=== PATIENT | female | born 1995 | race Caucasian/White ===

== ENCOUNTER 2019-10-03 05:46 | Outpatient (CLI) | payer OTHER ==
[~2019-10-03] VITALS: Ht 172 cm; Wt 61.3 kg
== END 2019-10-03 14:13 | disposition home or self-care (01) ==
LOC: PREOP 05:46
PROVIDERS: ATTEND Surgery
DX: Z01.818 Encounter for other preprocedural examination (principal)

== ENCOUNTER → 2019-11-09 | Outpatient (CLI) | payer MEDICAID | END | disposition home or self-care (01) | LOC: PREOP 05:35 | PROVIDERS: ATTEND Surgery | DX: Z01.818 Encounter for other preprocedural examination (principal) ==

== ENCOUNTER 2021-05-30 18:16 | Emergency (ER) | payer MEDICAID | END 2021-05-30 18:25 | disposition left against medical advice (07) | LOC: EDUNIT# 18:16 → ER 18:18 | DX: K46.9 Unspecified abdominal hernia without obstruction or gangrene (principal) ==

== ENCOUNTER 2021-05-30 19:01 | Emergency (ER) | payer MEDICAID ==
--- NOTE | 2021-05-30 19:16 | ED GU-Female ---
General Stated Complaint: HERNIA Source: patient History of Present Illness Date Seen by Provider: May 30, 2021 Time Seen by Provider: 19:10 Initial Comments PT ARRIVES VIA POV FROM HOME WITH MALE S.O. C/O LOWER ABDOMINAL PAIN X 3 DAYS, WORSE TODAY PT IS 36 WEEKS PT STATES SHE WAS AT [facility] 1 WEEK AGO AND DX WITH UMBILICAL HERNIA AND TOLD TO FOLLOW UP WITH HER OB DR. HAS NOT SEEN ANYONE UNTIL TODAY PT STATES HER PAIN IS ALL DOWN LOW--ALL ACROSS LOWER ABDOMEN AND PELVIC AREA PT SENT DIRECTLY TO OB DEPT PCP: DR. CARABALLO Allergies and Home Medications Allergies Coded Allergies: No Known Drug Allergies (Unverified , 10/03/19) Patient Home Medication List Home Medication List Reviewed: No No Active Prescriptions or Reported Meds Review of Systems Review of Systems Constitutional: no symptoms reported Gastrointestinal: see HPI Genitourinary: see HPI : Yes Past Gugukmw-Bwddrw-Akkjrp Hx Seasonal Allergies Seasonal Allergies: Yes Past Medical History Surgeries: No Respiratory: No Cardiac: No Neurological: Yes (HX FEBRILE SEIZURE) Seizure Disorder Sexually Transmitted Disease: No HIV/AIDS: No Genitourinary: No Gastrointestinal: Yes Chronic Constipation, Chronic Diarrhea Musculoskeletal: Yes Chronic Back Pain Endocrine: No HEENT: Yes (GLASSES) Loss of Vision: Denies Hearing Impairment: Denies Cancer: No Psychosocial: Yes Anxiety Integumentary: No Blood Disorders: No Adverse Reaction/Blood Tranf: No (N/A) Physical Exam Vital Signs Capillary Refill : Height, Weight, BMI Height: '" Weight: lbs. oz. kg; 20.72 BMI Method: General Appearance: WD/WN Respiratory: normal breath sounds Gastrointestinal: other (GRAVID UTERUS--NEAR-TERM. NO UMBILICAL HERNIA NOTED AT THIS TIME, AND UMBILICAL AREA IS NON-TENDER AND NON-INFLAMED. HAS MILD DIFFUSE LOWER ABDOMINAL/SUPRAPUBIC TENDERNESS) Extremities: no pedal edema Neurologic/Psychiatric: no motor/sensory deficits, alert, normal mood/affect Skin: normal color, warm/dry Progress/Results/Core Measures Suspected Sepsis SIRS Temperature: Pulse: Respiratory Rate: Blood Pressure / Mean: Results/Orders Vital Signs/I&O Capillary Refill : Departure Impression Primary Impression: 36 weeks gestation of Additional Impression: Pelvic pain affecting in third trimester, antepartum Disposition: 30 STILL A PATIENT (TAKEN TO OB DEPT) Condition: Stable Departure-Patient Inst. Referrals: NELL CARABALLO MD (PCP/Family) Primary Care Physician Scripts No Active Prescriptions or Reported Meds STANLEY BARBOUR DO May 30, 2021 19:15
== END 2021-05-30 19:36 | disposition still patient (30) ==
LOC: EDUNIT# 19:01 → ER 19:03
DX: O26.893 Other specified pregnancy related conditions, third trimester (principal); R10.2 Pelvic and perineal pain; Z3A.36 36 weeks gestation of pregnancy

== ENCOUNTER 2021-05-30 19:54 | Outpatient (CLI) | payer MEDICAID ==
[~2021-05-30] VITALS: Ht 172.7 cm; Wt 92.9 kg
[2021-05-30 20:00] VITALS: BP 107/58
--- NOTE | 2021-06-03 11:54 | Physician Query-Final Dx ---
Clinic Account Progress/Dx Physician Query: Please give diagnosis Please include # weeks gestation Date of Service May 30, 2021 at 19:54 PREETI FOURNIER Jun 03, 2021 11:54
== END 2021-05-30 20:35 | disposition home or self-care (01) ==
LOC: LDRP 19:54 → WSo 19:54
PROVIDERS: ATTEND Family Medicine
DX: O99.619 Diseases of the digestive system complicating pregnancy, unspecified trimester (principal); Z3A.00 Weeks of gestation of pregnancy not specified
CPT/HCPCS: 99212

== ENCOUNTER 2021-06-25 05:56 | Inpatient (IN) | payer MEDICAID ==
[2021-06-25] VITALS (49 sets, daily range): BP systolic 92–159; BP diastolic 50–87
[2021-06-25] MEDS ORDERED: MINERAL OIL CONCENTRATE 99.9% 15 ML UDC TOP PRN (06:15)
[2021-06-25] MEDS ORDERED: LIDOCAINE/EPI 2% 1:200,00 (XYLOCAINE) 20 ML VIAL INJ PRN (06:15)
[2021-06-25 06:50] LABS: BASOPHILS # (AUTO) 0.1 10^3/uL (0.0-0.1); BASOPHILS % (AUTO) 0 % (0-10); EOSINOPHILS # (AUTO) 0.2 10^3/uL (0.0-0.3); EOSINOPHILS % (AUTO) 2 % (0-10); HEMATOCRIT 35 % (35-52); HEMOGLOBIN 12.1 g/dL (11.5-16.0); LYMPHOCYTES # (AUTO) 2.6 10^3/uL (1.0-4.0); LYMPHOCYTES % (AUTO) 19 % (12-44); MEAN CORPUSCULAR HEMOGLOBIN 32 pg (25-34); MEAN CORPUSCULAR HGB CONC 35 g/dL (32-36); MEAN CORPUSCULAR VOLUME 94 fL (80-99); MEAN PLATELET VOLUME 11.4 fL (9.0-12.2); MONOCYTES # (AUTO) 0.8 10^3/uL (0.0-1.0); MONOCYTES % (AUTO) 6 % (0-12); NEUTROPHILS # (AUTO) 9.9 10^3/uL (1.8-7.8); NEUTROPHILS % (AUTO) 73 % (42-75); PLATELET COUNT 289 10^3/uL (130-400); WHITE BLOOD COUNT 13.6 10^3/uL (4.3-11.0)
[2021-06-25] MEDS: D5 LR IV SOLUTION 1,000 ML IV SCH ×2 (07:24→14:47)
[2021-06-25 08:04] LABS: BILIRUBIN,URINE NEGATIVE (NEGATIVE); CLARITY,URINE CLEAR; COLOR,URINE YELLOW; GLUCOSE, URINE (UA) NEGATIVE (NEGATIVE); KETONES,URINE NEGATIVE (NEGATIVE); LEUKOCYTE ESTERASE ,URINE TRACE (NEGATIVE); NITRITE,URINE NEGATIVE (NEGATIVE); PH,URINE 6.5 (5-9); PROTEIN,URINE NEGATIVE (NEGATIVE)
[2021-06-25 08:20] LABS: BACTERIA,URINE TRACE /HPF; WBC,URINE RARE /HPF
[2021-06-25] MEDS ORDERED: PANTOPRAZOLE 40 MG (PROTONIX) VIAL IV ONE (09:00)
[2021-06-25] MEDS: OXYTOCIN PRE-MIX DRIP 500 ML IV SCH ×2 (09:34→20:12)
[2021-06-25] MEDS ORDERED: CATHETER FLUSH 10 ML SYR IV SCH ×2 (14:00→22:00)
--- NOTE | 2021-06-25 14:28 | Labor Progress Note ---
Labor Progress Note Labor Progress Note Date Seen by Provider: Jun 25, 2021 Time Seen by Provider: 13:45 Subjective: Pt denies complaints. Objective: Cervical exam: 3.5/50/-3 Consistency: soft Position: anterior Presentation: vertex heart tones: moderate variability, reactive Tocometer: 3-4 ctx/10 minutes Assessment/Plan: Eve Sky is a (25 /Para / ,Gestational Age (wks)39 here for IOL. AROM done at time of exam with placement of FSE. Clear fluid return. TOCO/FSE Continue pitocin/ Anesthesia: none, planning epidural Anticipate vaginal delivery. Vitals - Labs Vital Signs - I&O Vital Signs Date Time Temp Pulse Resp B/P (MAP) Pulse Ox O2 Delivery O2 Flow Rate FiO2 06/25/21 14:15 63 18 121/64 (83) 06/25/21 14:00 62 18 118/64 (82) 06/25/21 13:30 71 18 92/50 (64) 06/25/21 13:15 63 18 117/64 (81) 06/25/21 13:00 60 18 117/59 (78) 06/25/21 12:45 62 18 115/69 (84) 06/25/21 12:30 55 18 100/56 (71) 06/25/21 12:00 63 18 103/50 (67) 06/25/21 11:45 66 18 117/58 (77) 06/25/21 11:30 66 18 131/87 (102) 06/25/21 10:45 66 18 118/69 (85) 06/25/21 10:30 66 18 118/71 (87) 06/25/21 09:45 74 18 122/75 (91) 06/25/21 09:15 77 18 116/79 (91) 06/25/21 08:45 78 18 116/70 (85) 06/25/21 08:15 74 18 127/58 (81) 06/25/21 07:18 36.7 90 17 98 Room Air 06/25/21 07:17 36.7 93 18 124/72 (89) 98 Labs Laboratory Tests 06/25/21 06:30: White Blood Count 13.6H, Red Blood Count 3.74L, Hemoglobin 12.1, Hematocrit 35, Mean Corpuscular Volume 94, Mean Corpuscular Hemoglobin 32, Mean Corpuscular Hemoglobin Concent 35, Red Cell Distribution Width 13.0, Platelet Count 289, Mean Platelet Volume 11.4, Immature Granulocyte % (Auto) 1, Neutrophils (%) (Auto) 73, Lymphocytes (%) (Auto) 19, Monocytes (%) (Auto) 6, Eosinophils (%) (Auto) 2, Basophils (%) (Auto) 0, Neutrophils # (Auto) 9.9H, Lymphocytes # (Auto) 2.6, Monocytes # (Auto) 0.8, Eosinophils # (Auto) 0.2, Basophils # (Auto) 0.1, Immature Granulocyte # (Auto) 0.1 06/25/21 07:53: Urine Color YELLOW, Urine Clarity CLEAR, Urine pH 6.5, Urine Specific [place] 1.020, Urine Protein NEGATIVE, Urine Glucose (UA) NEGATIVE, Urine Ketones NEGATIVE, Urine Nitrite NEGATIVE, Urine Bilirubin NEGATIVE, Urine Urobilinogen 0.2, Urine Leukocyte Esterase TRACEH, Urine RBC (Auto) NEGATIVE, Urine RBC NONE, Urine WBC RARE, Urine Squamous Epithelial Cells 5-10, Urine Crystals NONE, Urine Bacteria TRACE, Urine Casts NONE, Urine Mucus SMALLH, Urine Culture Indicated NO ANITA GARCIA MD Jun 25, 2021 14:28
[2021-06-25] MEDS ORDERED: fentaNYL 2 mcg/ml BUPIVA 0.125 100 ML ONE (14:42)
[2021-06-25] MEDS ORDERED: BUPIVACAINE 0.25% 30 ML (SENSORCAINE) VIAL ONE (15:20)
[2021-06-25] MEDS ORDERED: fentaNYL INJ 100 MCG/2 ML AMP ONE (15:20)
[2021-06-25] MEDS ORDERED: LIDOCAINE 1% INJ 20 ML 20 ML VIAL ONE (15:42)
[2021-06-25] MEDS ORDERED: ONDANSETRON 4 MG/2 ML (SDV) Z0FRAN IV PRN (16:00)
[2021-06-25] MEDS ORDERED: diphenhydrAMINE 50 MG/ML INJ (BENADRYL) IV PRN (16:00)
[2021-06-25] MEDS ORDERED: NALOXONE 0.4 MG/ML 1 ML (NARCAN) VIAL IV PRN (16:00)
[2021-06-25] MEDS ORDERED: EPIDURAL (fentaNYL 2 MCG/ML BUPIVA 0.125%)100 ML BAG EPI PRN (16:00)
[2021-06-25] MEDS ORDERED: LACTATED RINGERS 1,000 ML IV SCH (16:00)
[2021-06-25] MEDS ORDERED: METOCLOPRAMIDE INJ 10 MG/2 ML (REGLAN) ONE (18:00)
[2021-06-25] MEDS ORDERED: METOCLOPRAMIDE INJ 10 MG/2 ML (REGLAN) IV PRN (18:00)
--- NOTE | 2021-06-25 18:15 | History & Physical-OB ---
OB - Chief Complaint & HPI Date/Time Date of Admission: Date of Admission: Jun 25, 2021 at 05:56 Date seen by a Provider: Jun 25, 2021 Time Seen by a Provider: 17:30 Chief Complaint/History OB-Reason for Admission/Chief: Induction of Labor Hx : 3 Hx Para: 2 Expected Date of Delivery: Jul 01, 2021 Gestational Age in Weeks: 39 Gestational Age in Days: 1 Indication for induction: other (elective) History of Labs O+, Ab neg, Rub Non Immune HIV/HepB/C/RPR NR Normal 1 hr GTT GBS neg Allergies and Home Medications Allergies Coded Allergies: No Known Drug Allergies (Unverified , 10/03/19) Patient Home Medication List Home Medication List Reviewed: Yes No Active Prescriptions or Reported Meds OB - History Hx of Present Care: Yes Ultrasounds: Normal mid trimester US Obstetrical Complications: None Medical Complications: None Information Induced Hypertension: No Maternal Gestational Diabetes: No Hemorrhage: No Obstetrical History Hx : 3 Hx Para: 2 Number of Living Children: 2 Delivery History Adverse Rxn to Tranfusion: No (N/A) Patient Past Medical History None Social History/Family History 2nd Hand Smoke Exposure: No Immunizations Tetanus Booster (TDap): Less than 5yrs Rubella: not immune RPR/VDRL: Negative GBS Status: Negative HBsAG: Negative OB - Admission Exam Physical Exam Vitals: Vital Signs 06/25/21 06/25/21 07:18 14:15 Temp 36.7 Pulse 63 Resp 18 B/P (MAP) 121/64 (83) Pulse Ox 98 O2 Delivery Room Air HEENT: NCAT Heart: Rhythm Normal Lungs: Clear Abdomen: Gravid Cervical Dilatation: 9cm Effacement: 100% Station: 0 Membranes: Ruptured Amniotic Fluid: Clear Heart Rate: 140's Accelerations: Accelerations Present Decelerations: No Decelerations Short Term Variability: Present Correction Variability: Average (6-25) Intensity: Moderate Martinez Scoring Tool (Modified) Dilation (cm): 3-4cm (2) Effacement (%): 51-79% (2) Descent/Station: -1,0 (2) Cervix Consistency: Soft (2) Cervix Position: Middle/Mid-Position (1) Add 1 point for: Each previous vaginal delivery (1) Martinez Score: 10 Labs Laboratory Tests Test 06/25/21 06:30 06/25/21 07:53 Range/Units White Blood Count 13.6 H 4.3-11.0 10^3/uL Red Blood Count 3.74 L 3.80-5.11 10^6/uL Hemoglobin 12.1 11.5-16.0 g/dL Hematocrit 35 35-52 % Mean Corpuscular Volume 94 80-99 fL Mean Corpuscular Hemoglobin 32 25-34 pg Mean Corpuscular Hemoglobin Concent 35 32-36 g/dL Red Cell Distribution Width 13.0 10.0-14.5 % Platelet Count 289 130-400 10^3/uL Mean Platelet Volume 11.4 9.0-12.2 fL Immature Granulocyte % (Auto) 1 % Neutrophils (%) (Auto) 73 42-75 % Lymphocytes (%) (Auto) 19 12-44 % Monocytes (%) (Auto) 6 0-12 % Eosinophils (%) (Auto) 2 0-10 % Basophils (%) (Auto) 0 0-10 % Neutrophils # (Auto) 9.9 H 1.8-7.8 10^3/uL Lymphocytes # (Auto) 2.6 1.0-4.0 10^3/uL Monocytes # (Auto) 0.8 0.0-1.0 10^3/uL Eosinophils # (Auto) 0.2 0.0-0.3 10^3/uL Basophils # (Auto) 0.1 0.0-0.1 10^3/uL Immature Granulocyte # (Auto) 0.1 0.0-0.1 10^3/uL Urine Color YELLOW Urine Clarity CLEAR Urine pH 6.5 5-9 Urine Specific [place] 1.020 1.016-1.022 Urine Protein NEGATIVE NEGATIVE Urine Glucose (UA) NEGATIVE NEGATIVE Urine Ketones NEGATIVE NEGATIVE Urine Nitrite NEGATIVE NEGATIVE Urine Bilirubin NEGATIVE NEGATIVE Urine Urobilinogen 0.2 < = 1.0 MG/DL Urine Leukocyte Esterase TRACE H NEGATIVE Urine RBC (Auto) NEGATIVE NEGATIVE Urine RBC NONE /HPF Urine WBC RARE /HPF Urine Squamous Epithelial Cells 5-10 /HPF Urine Crystals NONE /LPF Urine Bacteria TRACE /HPF Urine Casts NONE /LPF Urine Mucus SMALL H /LPF Urine Culture Indicated NO OB - Assessment/Plan/Diagnosis Assessment Assessment: induction of labor Admission Dx Third Trimester 39 week gestation Admission Status: Inpatient Order (span 2 midnights) Reason for Inpatient Admission: Labor Plan Other Plan 25 yo @ 39.1 wga here for IOL Plan - Expectant Vaginal delivery - Epidural in place - GBS neg NELL CARABALLO MD Jun 25, 2021 18:15
[2021-06-25] MEDS ORDERED: LIDOCAINE/EPI 2% 1:200,00 (XYLOCAINE) 10 ML VIAL ONE (18:29)
--- NOTE | 2021-06-25 20:18 | OB Labor & Delivery Record ---
Vag Delivery Note Vag Delivery Note Date of Delivery: 06/25/21 Preoperative Diagnosis: Eve Sky is a (25 /Para 3 / 2,Gestational Age (wks)39.1 here for IOL Postoperative Diagnosis: Same Surgeon: NELL CARABALLO MD Aquatic Director: None Anesthesia: Epidural Delivery Type: @ 1938 Findings: Viable male , apgars 8/9, weight 8#13, 4010 grams Lacerations: Bilateral labial lacerations Intact placenta with 3 vessel cord. No nuchal cord, body cord or shoulder dystocia Cytotec 800 mcg placed for hemorrhage prophylaxis Estimated Blood Loss: 150 ml Complications: None Condition: Stable Description of Procedure: The patient is a 25 year old female who presented for IOL. She was admitted and informed consent was obtained. Her labor course was unremarkable. She progressed to complete dilatation and began to push. She was then set up for delivery. The 's head was delivered atraumatically in the HENOK position with low vaccum assist after . The shoulders and remainder of the infant's body were then delivered without difficulty. Upon delivery, the head was held below the level of the perineum and the mouth and nares were bulb suctioned. The cord was doubly clamped and cut by FOB after 1 min delay and the infant was attended to by the pediatric staff on maternal abdomen. An intact placenta with 3-vessel cord delivered via Victoriano and there was found to be minimal bleeding.~ Vigorous fundal massage was performed and the fundus was found to be firm. IV oxytocin was given. Examination of the vagina and perineum revealed bilateral labial lacerations repaired in the usual fashion with 3-0 vicryl suture. Following the repair, sponge, instrument and needle counts were correct. Mom and baby were both in stable condition in the labor suite. Vitals - Labs Vital Signs - I&O Vital Signs Date Time Temp Pulse Resp B/P (MAP) Pulse Ox O2 Delivery O2 Flow Rate FiO2 06/25/21 19:00 101 18 108/69 (82) 06/25/21 18:45 73 18 118/62 (80) 06/25/21 18:15 77 18 159/77 (104) 06/25/21 17:30 64 18 110/67 (81) 06/25/21 17:15 75 18 117/67 (84) 06/25/21 17:00 71 18 93/50 (64) 06/25/21 16:45 88 18 119/66 (83) 06/25/21 16:23 98 18 120/68 (85) 98 06/25/21 16:16 83 18 121/66 (84) 99 06/25/21 16:12 66 18 119/66 (83) 99 06/25/21 16:05 95 18 125/77 (93) 100 06/25/21 16:03 78 18 127/69 (88) 98 06/25/21 16:00 93 18 126/70 (88) 98 06/25/21 15:56 71 18 116/64 (81) 98 06/25/21 15:53 91 18 115/59 (77) 99 06/25/21 15:50 86 18 125/60 (81) 99 06/25/21 15:45 77 18 125/65 (85) 98 06/25/21 15:40 74 130/68 (88) 06/25/21 15:34 92 119/77 (91) 06/25/21 15:27 102 18 146/79 (101) 06/25/21 15:15 61 18 139/75 (96) 06/25/21 14:45 72 18 118/56 (76) 06/25/21 14:30 72 18 103/59 (74) 06/25/21 14:15 63 18 121/64 (83) 06/25/21 14:00 62 18 118/64 (82) 06/25/21 13:30 71 18 92/50 (64) 06/25/21 13:15 63 18 117/64 (81) 06/25/21 13:00 60 18 117/59 (78) 06/25/21 12:45 62 18 115/69 (84) 06/25/21 12:30 55 18 100/56 (71) 06/25/21 12:00 63 18 103/50 (67) 06/25/21 11:45 66 18 117/58 (77) 06/25/21 11:30 66 18 131/87 (102) 06/25/21 10:45 66 18 118/69 (85) 06/25/21 10:30 66 18 118/71 (87) 06/25/21 09:45 74 18 122/75 (91) 06/25/21 09:15 77 18 116/79 (91) 06/25/21 08:45 78 18 116/70 (85) 06/25/21 08:15 74 18 127/58 (81) 06/25/21 07:18 36.7 90 17 98 Room Air 06/25/21 07:17 36.7 93 18 124/72 (89) 98 Labs Laboratory Tests 06/25/21 06:30: White Blood Count 13.6H, Red Blood Count 3.74L, Hemoglobin 12.1, Hematocrit 35, Mean Corpuscular Volume 94, Mean Corpuscular Hemoglobin 32, Mean Corpuscular Hemoglobin Concent 35, Red Cell Distribution Width 13.0, Platelet Count 289, Mean Platelet Volume 11.4, Immature Granulocyte % (Auto) 1, Neutrophils (%) (A uto) 73, Lymphocytes (%) (Auto) 19, Monocytes (%) (Auto) 6, Eosinophils (%) (Auto) 2, Basophils (%) (Auto) 0, Neutrophils # (Auto) 9.9H, Lymphocytes # (Auto) 2.6, Monocytes # (Auto) 0.8, Eosinophils # (Auto) 0.2, Basophils # (Auto) 0.1, Immature Granulocyte # (Auto) 0.1 06/25/21 07:53: Urine Color YELLOW, Urine Clarity CLEAR, Urine pH 6.5, Urine Specific [place] 1.020, Urine Protein NEGATIVE, Urine Glucose (UA) NEGATIVE, Urine Ketones NEGATIVE, Urine Nitrite NEGATIVE, Urine Bilirubin NEGATIVE, Urine Urobilinogen 0.2, Urine Leukocyte Esterase TRACEH, Urine RBC (Auto) NEGATIVE, Urine RBC NONE, Urine WBC RARE, Urine Squamous Epithelial Cells 5-10, Urine Crystals NONE, Urine Bacteria TRACE, Urine Casts NONE, Urine Mucus SMALLH, Urine Culture Indicated NO NELL CARABALLO MD Jun 25, 2021 20:18
[2021-06-25] MEDS ORDERED: OXYTOCIN PRE-MIX DRIP 500 ML IV SCH (20:30)
[2021-06-25] MEDS ORDERED: BENZOCAINE/MENTHOL (DERMOPLAST) 56 ML CAN TP PRN (20:30)
[2021-06-25] MEDS ORDERED: WITCH HAZEL(TUCKS) 40 EA JAR TOP PRN (20:30)
[2021-06-25] MEDS ORDERED: MEASLES,MUMPS,RUBELLA 1 EA INJ SQ ONE (20:30)
[2021-06-25] MEDS: DOCUSATE SODIUM 100 MG (COLACE) CAP PO SCH (22:05)
[2021-06-25] MEDS: IBUPROFEN 600 MG (MOTRIN) TAB PO SCH (23:33)
[2021-06-25] MEDS: ACETAMINOPHEN 500 MG TAB (TYLENOL) PO SCH (23:34)
[2021-06-26 04:20] VITALS: BP 104/56
[2021-06-26 05:55] LABS: BASOPHILS % (AUTO) 0 % (0-10); EOSINOPHILS # (AUTO) 0.1 10^3/uL (0.0-0.3); EOSINOPHILS % (AUTO) 1 % (0-10); HEMATOCRIT 29 % (35-52); HEMOGLOBIN 9.9 g/dL (11.5-16.0); LYMPHOCYTES # (AUTO) 2.2 10^3/uL (1.0-4.0); LYMPHOCYTES % (AUTO) 15 % (12-44); MEAN CORPUSCULAR HEMOGLOBIN 32 pg (25-34); MEAN CORPUSCULAR HGB CONC 34 g/dL (32-36); MEAN CORPUSCULAR VOLUME 95 fL (80-99); MEAN PLATELET VOLUME 10.8 fL (9.0-12.2); MONOCYTES # (AUTO) 0.9 10^3/uL (0.0-1.0); MONOCYTES % (AUTO) 6 % (0-12); NEUTROPHILS # (AUTO) 10.9 10^3/uL (1.8-7.8); NEUTROPHILS % (AUTO) 77 % (42-75); PLATELET COUNT 250 10^3/uL (130-400); WHITE BLOOD COUNT 14.2 10^3/uL (4.3-11.0)
[2021-06-26] MEDS ORDERED: PNV1TABL67 PO (06:08)
[2021-06-26] MEDS ORDERED: FERR325T18 PO (06:08)
[2021-06-26] MEDS ORDERED: IBUP-844 PO (06:08)
[2021-06-26] MEDS: IBUPROFEN 600 MG (MOTRIN) TAB PO SCH ×3 (06:44→20:39)
--- NOTE | 2021-06-26 08:47 | Progress Note ---
Subjective Subjective/Events-last exam Afebrile, denies concerns. States bleeding is minimal, denies chest pain, shortness of breath. Objective Exam Last Set of Vital Signs Vital Signs Date Time Temp Pulse Resp B/P (MAP) Pulse Ox O2 Delivery O2 Flow Rate FiO2 06/26/21 04:20 36.0 68 16 104/56 (72) 99 Room Air Capillary Refill : Less Than 3 Seconds I&O Intake and Output 06/26/21 00:00 Intake Total 1500 ml Balance 1500 ml Intake IV Total 1500 ml Daily Weight Change No General: Alert, No Acute Distress Lungs: Clear to Auscultation, Normal Air Movement Heart: Regular Rate, No Murmurs Psych/Mental Status: Mood NL Results/Procedures Lab Laboratory Tests 06/26/21 05:40: White Blood Count 14.2H, Red Blood Count 3.09L, Hemoglobin 9.9L, Hematocrit 29L, Mean Corpuscular Volume 95, Mean Corpuscular Hemoglobin 32, Mean Corpuscular Hemoglobin Concent 34, Red Cell Distribution Width 12.9, Platelet Count 250, Mean Platelet Volume 10.8, Immature Granulocyte % (Auto) 1, Neutrophils (%) (Auto) 77H, Lymphocytes (%) (Auto) 15, Monocytes (%) (Auto) 6, Eosinophils (%) (Auto) 1, Basophils (%) (Auto) 0, Neutrophils # (Auto) 10.9H, Lymphocytes # (A uto) 2.2, Monocytes # (Auto) 0.9, Eosinophils # (Auto) 0.1, Basophils # (Auto) 0.0, Immature Granulocyte # (Auto) 0.1 Assessment/Plan Assessment/Plan (1) Spontaneous vaginal delivery Status: Acute Assessment & Plan: Routine care (2) Acute blood loss anemia Status: Acute Assessment & Plan: Asymptomatic, ferrous sulfate daily. ANITA GARCIA MD Jun 26, 2021 08:47
[2021-06-26] MEDS: ACETAMINOPHEN 500 MG TAB (TYLENOL) PO SCH ×3 (10:13→19:56)
[2021-06-26] MEDS: PRENATAL VITAMIN 1 EA TAB PO SCH (10:13)
[2021-06-26] MEDS: DOCUSATE SODIUM 100 MG (COLACE) CAP PO SCH ×2 (10:13→20:39)
[2021-06-26 10:14] VITALS: BP 142/75
[2021-06-26 14:44] VITALS: BP 140/59
[2021-06-26 18:28] VITALS: BP 114/60
[2021-06-26 20:39] VITALS: BP 123/65
[2021-06-27 03:39] VITALS: BP 107/62
[2021-06-27] MEDS: ACETAMINOPHEN 500 MG TAB (TYLENOL) PO SCH ×2 (03:42→10:06)
[2021-06-27] MEDS: IBUPROFEN 600 MG (MOTRIN) TAB PO SCH ×2 (03:42→10:06)
[2021-06-27] MEDS ORDERED: CALCIUM CARBONATE 500 MG (TUMS) TAB.CHEW PO PRN (03:45)
[2021-06-27] MEDS ORDERED: CALCIUM CARBONATE 500 MG (TUMS) TAB.CHEW ONE (03:45)
--- NOTE | 2021-06-27 09:05 | Anesthesia-Regional Post-Op ---
Regional Patient Condition Mental Status: Alert, Oriented x3 Circulation: Same as Pre-Op Headache: Absent Sensation: Full Recovery Motor Block: Absent Post Op Complications Complications None Follow Up Care/Instructions Patient Instructions None needed. Anesthesia/Patient Condition Patient is doing well, no complaints, stable vital signs, no apparent adverse anesthesia problems. No complications reported per nursing. JENNIFFER PERES CRNA Jun 27, 2021 09:05
[2021-06-27] MEDS: PRENATAL VITAMIN 1 EA TAB PO SCH (10:06)
[2021-06-27] MEDS: DOCUSATE SODIUM 100 MG (COLACE) CAP PO SCH (10:06)
[2021-06-27 10:07] VITALS: BP 121/60
--- NOTE | 2021-06-27 10:08 | Discharge Summary ---
Discharge Summary Hospital Course Problems/Diagnosis: (1) Spontaneous vaginal delivery Status: Acute Assessment & Plan: Routine care (2) Acute blood loss anemia Status: Acute Assessment & Plan: Asymptomatic, ferrous sulfate daily. Hospital Course Date of Admission: Jun 25, 2021 at 05:56 Admission Diagnosis : Induction of labor at 39 weeks gestation Family Physician/Provider: Starla Graham MD Date of Discharge: 06/27/21 Discharge Diagnosis: See problem list Hospital Course: Pt admitted for IOL at 39 weeks, had uncomplicated labor, delivery and course, did have an LGA infant, mild asymptomatic anemia. Labs and Pending Lab Test: Home Meds Active Ferrous Sulfate 325 Mg Tablet 325 Mg PO DAILY Pnv Plus Multivit Tab (Pnv with Ca,No.72/Iron/FA) 1 Each Tablet 1 Ea PO DAILY@0700 Ibu (Ibuprofen) 600 Mg Tablet 600 Mg PO Q6HR PRN Assessment/Pt DC Instructions Follow up with Dr. Graham in 6 weeks for visit. Discharge Diet: No Restrictions Activity as Tolerated: Yes (avoid strenuous activity x 6 weeks) Discharge Physical Examination Allergies: Coded Allergies: No Known Drug Allergies (Unverified , 10/03/19) General Appearance: No Apparent Distress Respiratory: Lungs Clear Cardiovascular: Regular Rate, Rhythm, No Murmur Extremity: No Pedal Edema Skin: Normal Color, Warm/Dry Neurologic/Psychiatric: Alert, Normal Mood/Affect ANITA GARCIA MD Jun 27, 2021 10:08
[2021-06-27] MEDS ORDERED: MEASLES,MUMPS,RUBELLA 1 EA INJ ONE (10:09)
== END 2021-06-27 11:30 | disposition home or self-care (01) | DRG 806 ==
LOC: LDRP 05:56
PROVIDERS: ADMIT Family Medicine; ATTEND Family Medicine
PROC: 10D07Z6 Extraction of Products of Conception, Vacuum, Via Natural or Artificial Opening (ICD-10-PCS; principal; 2021-06-25)
PROC: 0HQ9XZZ Repair Perineum Skin, External Approach (ICD-10-PCS; 2021-06-25)
PROC: 3E033VJ Introduction of Other Hormone into Peripheral Vein, Percutaneous Approach (ICD-10-PCS; 2021-06-25)
PROC: 10907ZC Drainage of Amniotic Fluid, Therapeutic from Products of Conception, Via Natural or Artificial Opening (ICD-10-PCS; 2021-06-25)
DX: O99.02 Anemia complicating childbirth (principal); D62 Acute posthemorrhagic anemia; Z37.0 Single live birth; O70.0 First degree perineal laceration during delivery; Z3A.39 39 weeks gestation of pregnancy
CPT/HCPCS: 36415; 81000; 85025; 86850; 86900; 86901; 90707

== ENCOUNTER 2021-07-25 20:48 | Emergency (ER) | payer MEDICAID ==
[~2021-07-25 20:48] MED LIST: FERR325T18 PO; IBUP-844 PO; PNV1TABL67 PO
[2021-07-25] MEDS ORDERED: CYCL10TA25 PO (21:14)
[2021-07-25] MEDS ORDERED: PRD20T PO (21:14)
[2021-07-25] MEDS ORDERED: NAPR-1071 PO (21:14)
[2021-07-25] MEDS ORDERED: KETOROLAC 60 MG/2 ML VIAL IM ONE (21:15)
--- NOTE | 2021-07-25 21:15 | ED Back Pain ---
General Stated Complaint: BACK PAIN, NECK PAIN Source of Information: Patient Exam Limitations: No Limitations History of Present Illness Date Seen by Provider: Jul 25, 2021 Time Seen by Provider: 20:59 Initial Comments Patient ER by private conveyance chief complaint of low back pain around the level of her epidural intermittent for the past month. No fevers chills nausea vomiting diarrhea. No loss of control of bowel or bladder or saddle anesthesia falls due to weakness numbness or motor strength weakness. She is had chronic neck pain for many years she states. She took 600 mg ibuprofen this morning a bout 14 hours ago and does not feel like her pain is any better. She has not seen a primary care doctor or had any imaging or work-up of her back in the past. Allergies and Home Medications Allergies Coded Allergies: No Known Drug Allergies (Unverified , 10/03/19) Patient Home Medication List Home Medication List Reviewed: Yes Cyclobenzaprine HCl (Cyclobenzaprine HCl) 10 Mg Tablet, 10 MG PO Q8H PRN for SPASMS Prescribed by: OBDULIA MIGUEL on 07/25/212113 Ferrous Sulfate (Ferrous Sulfate) 325 Mg Tablet, 325 MG PO DAILY Prescribed by: ANITA GARCIA on 06/26/21607 Ibuprofen (Ibu) 600 Mg Tablet, 600 MG PO Q6HR PRN for PAIN-MODERATE (5-7) Prescribed by: ANITA GARCIA on 06/26/21607 Naproxen (Naprosyn) 500 Mg Tablet, 500 MG PO BID Prescribed by: OBDULIA MIGUEL on 07/25/212113 Pnv with Ca,No.72/Iron/FA (Pnv Plus Multivit Tab) 1 Each Tablet, 1 EA PO DAILY@0700 Prescribed by: ANITA GARCIA on 06/26/21607 Prednisone (Prednisone) 20 Mg Tab, 40 MG PO DAILY Prescribed by: OBDULIA MIGUEL on 07/25/212113 Review of Systems Constitutional: No chills, No diaphoresis EENTM: No ear discharge, No ear pain Respiratory: No cough, No short of breath Cardiovascular: No chest pain, No palpitations Gastrointestinal: No abdominal pain, No nausea, No vomiting Genitourinary: No discharge, No dysuria Musculoskeletal: back pain; No joint pain All Other Systems Reviewed Negative Unless Noted: Yes Past Fbwdfya-Sbnmyd-Xyguue Hx Patient Social History Tobacco Use?: Yes Tobacco type used: Cigarettes Smoking Status: Current Everyday Smoker Smokeless Tobacco Frequency: Current Everyday User Use of E-Cig and/or Vaping dev: No Substance use?: No Immunizations Up To Date Tetanus Booster (TDap): Less than 5yrs Seasonal Allergies Seasonal Allergies: Yes Past Medical History Surgeries: No Respiratory: No Cardiac: No Neurological: Yes (HX FEBRILE SEIZURE) Seizure Disorder Sexually Transmitted Disease: No HIV/AIDS: No Genitourinary: No Gastrointestinal: Yes Chronic Constipation, Chronic Diarrhea Musculoskeletal: Yes Chronic Back Pain Endocrine: No HEENT: Yes (GLASSES) Loss of Vision: Denies Hearing Impairment: Denies Cancer: No Psychosocial: Yes Anxiety Integumentary: No Blood Disorders: No Adverse Reaction/Blood Tranf: No (N/A) Physical Exam Vital Signs Vital Signs - First Documented 07/25/21 21:10 Temp 36.0 Pulse 81 Resp 20 B/P (MAP) 117/90 (99) Pulse Ox 96 O2 Delivery Room Air Capillary Refill : Height, Weight, BMI Height: '" Weight: lbs. oz. kg; 31.14 BMI Method: General Appearance: No Apparent Distress, WD/WN HEENT: PERRL/EOMI, Pharynx Normal, Moist Mucous Membranes Neck: Normal Inspection, Non Tender Cardiovascular: Regular Rate, Rhythm, Normal Peripheral Pulses Respiratory: No Accessory Muscle Use, No Respiratory Distress Back: Normal Inspection, No CVA Tenderness, Vertebral Tenderness (Low back bilateral tenderness right worse than left.) Progress/Results/Core Measures Results/Orders My Orders Orders - OBDULIA MIGUEL Ketorolac Injection (Toradol Injection) (07/25/21 21:15) Medications Given in ED Current Medications Medications Dose Ordered Sig/Delaney Route Start Time Stop Time Status Last Admin Dose Admin Ketorolac Tromethamine 60 mg ONCE ONCE IM 07/25/21 21:15 07/25/21 21:16 DC 07/25/21 21:20 60 MG Vital Signs/I&O 07/25/21 21:10 Temp 36.0 Pulse 81 Resp 20 B/P (MAP) 117/90 (99) Pulse Ox 96 O2 Delivery Room Air Progress Progress Note : Time: 21:11 Progress Note Lumbago. Toradol offered. Encourage follow-up with physical therapy, PCP. We will put her on some muscle relaxants, NSAIDs and give her a prescription for prednisone if she does not feel like her symptoms are improving in a week or 2. Departure Impression Primary Impression: Lumbago Qualified Codes: M54.50 - Low back pain, unspecified Disposition: 01 HOME, SELF-CARE Condition: Stable Departure-Patient Inst. Decision time for Depature: 21:12 Referrals: NELL CARABALLO MD (PCP/Family) Primary Care Physician Patient Instructions: Back Exercises, LOCAL PHYSICIAN LIST, Low Back Pain (DC) Add. Discharge Instructions: Tylenol 1000 mg every 8 hours necessary for back pain. Topical creams such as icy hot or Biofreeze as well as heating pads as necessary for back pain. Start a regimen of naproxen 500 mg twice a day for the next 2 weeks to reduce the inflammation in your back. Cyclobenzaprine 1 tablet every 8 hours as necessary for muscle spasms in your back. Will cause drowsiness. Do not mix with alcohol. If not seeing improvement in 4 to 5 days then you can start a course of prednisone 2 tablets daily for 5 days. If not seeing improvement in 2 weeks of naproxen then I suggest you follow-up with your primary care doctor and/or physical therapy. You may reach physical therapy at [phone]. Prompt return to the ER if you lose control of your bowels and/or bladder, falls due to weakness in your legs, numbness or other severe worrisome concerns Scripts Prednisone (Prednisone) 20 Mg Tab 40 MG PO DAILY for 5 Days, #10 TAB 0 Refills Prov: OBDULIA MIGUEL 07/25/21 Naproxen (Naprosyn) 500 Mg Tablet 500 MG PO BID, #30 TAB 0 Refills Prov: OBDULIA MIGUEL 07/25/21 Cyclobenzaprine HCl (Cyclobenzaprine HCl) 10 Mg Tablet 10 MG PO Q8H PRN for SPASMS, #15 TAB 0 Refills Prov: OBDULIA MIGUEL 07/25/21 Work/School Note: Work Release Form Date Seen in the Emergency Department: Jul 25, 2021 Return to Work: Jul 29, 2021 Restrictions: No Restrictions OBDULIA MIGUEL Jul 25, 2021 21:15
[2021-07-25 21:25] VITALS: BP 117/90
== END 2021-07-25 21:25 | disposition home or self-care (01) ==
LOC: EDUNIT# 20:48 → ER 20:51
DX: M54.50 Low back pain, unspecified (principal)
CPT/HCPCS: 99284

== ENCOUNTER 2021-09-27 16:46 | Emergency (ER) | payer MEDICAID ==
[~2021-09-27] VITALS: Ht 175.3 cm; Wt 77.1 kg
[~2021-09-27 16:46] MED LIST changes: +CYCL10TA25 PO; +NAPR-1071 PO; +PRD20T PO
[2021-09-27 17:06] LABS: GLUCOSE, URINE (UA) NEGATIVE (NEGATIVE); KETONES,URINE TRACE (NEGATIVE); LEUKOCYTE ESTERASE ,URINE NEGATIVE (NEGATIVE); NITRITE,URINE NEGATIVE (NEGATIVE); PROTEIN,URINE NEGATIVE (NEGATIVE)
[2021-09-27 17:11] LABS: BILIRUBIN,URINE 2+ (NEGATIVE); CLARITY,URINE CLOUDY; COLOR,URINE DARK YELLOW
[2021-09-27 17:12] LABS: BACTERIA,URINE LARGE /HPF; SQUAMOUS EPITHELIAL CELL,UR >50 /HPF
[2021-09-27 17:16] LABS: AMPHETAMINE SCREEN, URINE NEGATIVE (NEGATIVE); BARBITURATE SCREEN URINE NEGATIVE (NEGATIVE); BENZODIAZEPINES SCREEN URINE NEGATIVE (NEGATIVE); CANNABINOID SCREEN, URINE POSITIVE (NEGATIVE); COCAINE SCREEN URINE NEGATIVE (NEGATIVE); METHADONE STAT NEGATIVE (NEGATIVE); METHAMPHETAMINE SCREEN URINE S NEGATIVE (NEGATIVE); OPIATE SCREEN URINE NEGATIVE (NEGATIVE); OXYCODONE STAT NEGATIVE (NEGATIVE); PROPOXYPHENE STAT NEGATIVE (NEGATIVE); TRICYCLIC ANTIDEPRESSANTS SCRE NEGATIVE (NEGATIVE)
[2021-09-27] MEDS ORDERED: NS IV 1000 ML 1,000 ML IV STA (17:20)
[2021-09-27] MEDS ORDERED: KETOROLAC 30 MG/ML VIAL IVP STA (17:20)
[2021-09-27] MEDS ORDERED: ONDANSETRON 4 MG/2 ML (SDV) Z0FRAN IVP STA (17:20)
--- NOTE | 2021-09-27 17:23 | ED GI ---
General Chief Complaint: Abdominal/GI Problems Stated Complaint: ABD PAIN Nursing Triage Note: PT AMBULATE TO ROOM FS06 WITHOUT DIFFICULTY WITH C/O N/V X3 MONTHS AND ABD PAIN STARTING TODAY. PT REPORTS SHE HAS NOT TAKEN ANYTHING FOR PAIN. PT STATES THAT SHE HAS NOT SEEN PCP FOR C/O N/V BECAUSE SHE DOES NOT LIKE DOCTORS. Source of Information: Patient, Other (friend in room) History of Present Illness Date Seen by Provider: Sep 27, 2021 Time Seen by Provider: 16:52 Initial Comments 25-year-old female presenting with complaints of nausea and vomiting for the last 3 months since she delivered her youngest child. She also has been having intermittent left flank pain since she was 14 years old. She developed severe left flank pain today. She states usually last for few hours and goes away. She denies having any fever or chills. She has had constipation. She states that she does not take anything for the pain because it usually goes away after few hours. She denies any fall or injury to her belly. She has not seen provider about her symptoms. She says that she does not like doctors are going to be seeing so she has not followed up about any of the symptoms Severity/Quality: Moderate, Cramping Location: Flank (right flank) Radiation: Flank Activities at Onset: None Associated Symptoms: Back Pain (chronic back pain); No Chest Pain, No Diaphoresis, No Fever/Chills, No Fatigue, No Headache, No Heartburn; Nausea/Vomiting; No Rash, No Shortness of Air, No Swelling/Mass in Abdomen, No Syncope, No Weakness Allergies and Home Medications Allergies Coded Allergies: No Known Drug Allergies (Unverified , 10/03/19) Patient Home Medication List Home Medication List Reviewed: Yes Cephalexin (Cephalexin) 500 Mg Capsule, 500 MG PO TID Prescribed by: SOLEDAD TOWNSEND on 09/27/21 182 Cyclobenzaprine HCl (Cyclobenzaprine HCl) 10 Mg Tablet, 10 MG PO Q8H PRN for SPASMS Prescribed by: OBDULIA MIGUEL on 07/25/212113 Ferrous Sulfate (Ferrous Sulfate) 325 Mg Tablet, 325 MG PO DAILY Prescribed by: ANITA GARCIA on 06/26/21 0608 Ibuprofen (Ibu) 600 Mg Tablet, 600 MG PO Q6HR PRN for PAIN-MODERATE (5-7) Prescribed by: ANITA GARCIA on 06/26/21607 Naproxen (Naproxen) 500 Mg Tablet, 500 MG PO Q12H PRN for flank pain Prescribed by: SOLEDAD TOWNSEND on 09/27/211822 Ondansetron (Ondansetron Odt) 4 Mg Tab.rapdis, 4 MG PO Q6H PRN for NAUSEA/VOMITING Prescribed by: SOLEDAD TOWNSEND on 09/27/211822 Pnv with Ca,No.72/Iron/FA (Pnv Plus Multivit Tab) 1 Each Tablet, 1 EA PO DAILY@0700 Prescribed by: ANITA GARCIA on 06/26/21607 Prednisone (Prednisone) 20 Mg Tab, 40 MG PO DAILY Prescribed by: OBDULIA MIGUEL on 07/25/212113 Review of Systems Review of Systems Constitutional: No chills, No fever EENTM: No Symptoms Reported Respiratory: No Symptoms Reported Cardiovascular: No Symptoms Reported Gastrointestinal: See HPI Genitourinary: Denies Discharge; Flank Pain; Denies Hematuria Musculoskeletal: see HPI Skin: no symptoms reported Psychiatric/Neurological: No Symptoms Reported Past Mqmnzav-Mqfcat-Lplwlq Hx Patient Social History Tobacco Use?: Yes Tobacco type used: Cigarettes Smoking Status: Current Everyday Smoker Smokeless Tobacco Frequency: Never a User Use of E-Cig and/or Vaping dev: No Use of E-Cig and/or Vaping Kel: Never a User Substance use?: No Alcohol Use?: No Pt feels they are or have been: No Immunizations Up To Date Tetanus Booster (TDap): Less than 5yrs Seasonal Allergies Seasonal Allergies: Yes Past Medical History Surgeries: No Respiratory: No Cardiac: No Neurological: Yes (HX FEBRILE SEIZURE) Seizure Disorder Sexually Transmitted Disease: No HIV/AIDS: No Genitourinary: No Gastrointestinal: Yes Chronic Constipation, Chronic Diarrhea Musculoskeletal: Yes Chronic Back Pain Endocrine: No HEENT: Yes (GLASSES) Loss of Vision: Denies Hearing Impairment: Denies Cancer: No Psychosocial: Yes Anxiety Integumentary: No Blood Disorders: No Adverse Reaction/Blood Tranf: No (N/A) Physical Exam Vital Signs Vital Signs - First Documented 09/27/21 16:51 Temp 36.3 Pulse 88 Resp 17 B/P (MAP) 152/118 (129) O2 Delivery Room Air Capillary Refill : Less Than 3 Seconds Height/Weight/BMI Height: '" Weight: lbs. oz. kg; 25.00 BMI Method: General Appearance: WD/WN, no apparent distress HEENT: PERRL/EOMI, pharynx normal Neck: non-tender, full range of motion, supple, normal inspection Respiratory: chest non-tender, lungs clear, normal breath sounds, no respiratory distress, no accessory muscle use Cardiovascular: normal peripheral pulses, regular rate, rhythm Gastrointestinal: normal bowel sounds, soft, no pulsatile mass; No distended, No guarding, No rebound; tenderness (right flank) Rectal: deferred Extremities: normal range of motion, non-tender, normal capillary refill Back: no CVA tenderness Neurologic/Psychiatric: registered nurse maternity II-XII nml as tested, no motor/sensory deficits, alert, oriented x 3 Skin: normal color, warm/dry Images 1 - right flank tender to palpation Progress/Results/Core Measures Results/Orders Lab Results Laboratory Tests Test 09/27/21 16:51 09/27/21 17:21 Range/Units Urine Color DARK YELLOW Urine Clarity CLOUDY Urine pH 6.0 5-9 Urine Specific [place] 1.025 H 1.016-1.022 Urine Protein NEGATIVE NEGATIVE Urine Glucose (UA) NEGATIVE NEGATIVE Urine Ketones TRACE H NEGATIVE Urine Nitrite NEGATIVE NEGATIVE Urine Bilirubin 2+ H NEGATIVE Urine Urobilinogen 1.0 < = 1.0 MG/DL Urine Leukocyte Esterase NEGATIVE NEGATIVE Urine RBC (Auto) 2+ H NEGATIVE Urine RBC 5-10 H /HPF Urine WBC 10-25 H /HPF Urine Squamous Epithelial Cells >50 H /HPF Urine Crystals NONE /LPF Urine Bacteria LARGE H /HPF Urine Casts NONE /LPF Urine Mucus LARGE H /LPF Urine Other /HPF Urine Culture Indicated NO Urine Opiates Screen NEGATIVE NEGATIVE Urine Oxycodone Screen NEGATIVE NEGATIVE Urine Methadone Screen NEGATIVE NEGATIVE Urine Propoxyphene Screen NEGATIVE NEGATIVE Urine Barbiturates Screen NEGATIVE NEGATIVE Ur Tricyclic Antidepressants Screen NEGATIVE NEGATIVE Urine Phencyclidine Screen NEGATIVE NEGATIVE Urine Amphetamines Screen NEGATIVE NEGATIVE Urine Methamphetamines Screen NEGATIVE NEGATIVE Urine Benzodiazepines Screen NEGATIVE NEGATIVE Urine Cocaine Screen NEGATIVE NEGATIVE Urine Cannabinoids Screen POSITIVE H NEGATIVE White Blood Count 10.3 4.3-11.0 10^3/uL Red Blood Count 4.31 3.80-5.11 10^6/uL Hemoglobin 12.9 11.5-16.0 g/dL Hematocrit 38 35-52 % Mean Corpuscular Volume 87 80-99 fL Mean Corpuscular Hemoglobin 30 25-34 pg Mean Corpuscular Hemoglobin Concent 34 32-36 g/dL Red Cell Distribution Width 12.6 10.0-14.5 % Platelet Count 357 130-400 10^3/uL Mean Platelet Volume 9.7 9.0-12.2 fL Immature Granulocyte % (Auto) 0 % Neutrophils (%) (Auto) 66 42-75 % Lymphocytes (%) (Auto) 26 12-44 % Monocytes (%) (Auto) 5 0-12 % Eosinophils (%) (Auto) 2 0-10 % Basophils (%) (Auto) 0 0-10 % Neutrophils # (Auto) 6.8 1.8-7.8 10^3/uL Lymphocytes # (Auto) 2.7 1.0-4.0 10^3/uL Monocytes # (Auto) 0.6 0.0-1.0 10^3/uL Eosinophils # (Auto) 0.2 0.0-0.3 10^3/uL Basophils # (Auto) 0.0 0.0-0.1 10^3/uL Immature Granulocyte # (Auto) 0.0 0.0-0.1 10^3/uL Sodium Level 141 135-145 MMOL/L Potassium Level 3.6 3.6-5.0 MMOL/L Chloride Level 104 98-107 MMOL/L Carbon Dioxide Level 27 21-32 MMOL/L Anion Gap 10 5-14 MMOL/L Blood Urea Nitrogen 6 L 7-18 MG/DL Creatinine 0.65 0.60-1.30 MG/DL Estimat Glomerular Filtration Rate 126 BUN/Creatinine Ratio 9 Glucose Level 114 H 70-105 MG/DL Calcium Level 9.5 8.5-10.1 MG/DL Corrected Calcium 9.3 8.5-10.1 MG/DL Total Bilirubin 0.6 0.1-1.0 MG/DL Aspartate Amino Transf (AST/SGOT) 17 5-34 U/L Alanine Aminotransferase (ALT/SGPT) 22 0-55 U/L Alkaline Phosphatase 65 40-136 U/L Total Protein 6.9 6.4-8.2 GM/DL Albumin 4.3 3.2-4.5 GM/DL Lipase 11 8-78 U/L My Orders Orders - SOLEDAD TOWNSEND MD Ua Culture If Indicated (09/27/21 16:59) Drug Screen Stat (Urine) (09/27/21 16:59) Urine Bedside (09/27/21 16:59) Comprehensive Metabolic Panel (09/27/21 17:20) Lipase (09/27/21 17:20) Ed Iv/Invasive Line Start (09/27/21 17:20) Cbc With Automated Diff (09/27/21 17:20) Ct Abdomen/Pelvis Wo (09/27/21 17:20) Ns Iv 1000 Ml (Sodium Chloride 0.9%) (09/27/21 17:20) Ketorolac Injection (Toradol Injection) (09/27/21 17:20) Ondansetron Injection (Zofran Injectio (09/27/21 17:20) Vital Signs/I&O 09/27/21 16:51 Temp 36.3 Pulse 88 Resp 17 B/P (MAP) 152/118 (129) O2 Delivery Room Air Blood Pressure Mean: 129 Progress Progress Note #1: Progress Note Patient states that she was not wanting to be here. She only came at the insistence of her family. She does consent to having blood work and a CT scan done. We will try doing some IV fluids with 1 L normal saline for hydration, Toradol for pain and inflammation, Zofran for nausea and vomiting. Progress Note #2: Progress Note Labs appear stable without any acute significant abnormality to explain her symptoms other than she did have some bacteria in her urine. However the urine also had a lot of epithelial cells. Her drug screen was positive for marijuana which could also be contributing to the nausea and vomiting. Encouraged to drink more fluids and use a laxative to help keep her stools more soft and regular. CT scan had showed some extra stool but no sign of obstruction or b lockage. She had no obvious kidney stones or other pathology to explain her symptoms. Counseled on results and findings as well as plan for follow-up. Diagnostic Imaging Diagonstic Imaging: CT Plain Films/CT/US/NM/MRI: abdomen, pelvis Comments NAME: JV KAUR Robb [facility] REC#: [id number] PT STATUS: REG ER : 1995 PHYSICIAN: SOLEDAD TOWNSEND MD ADMIT DATE: 09/27/21/ER FS Draft Date of Exam:09/27/21 CT ABDOMEN/PELVIS WO PROCEDURE: CT abdomen and pelvis without contrast. TECHNIQUE: Multiple contiguous axial images were obtained through the abdomen and pelvis without the use of intravenous contrast. Auto Exposure Controls were utilized during the CT exam to meet ALARA standards for radiation dose reduction. INDICATION: Left flank pain. Nausea and vomiting x 3 months. COMPARISON: None. FINDINGS: Lung bases are clear. Liver, gallbladder, pancreas, spleen, adrenals, kidneys, collecting systems, bladder and appendix are negative on this noncontrast exam. Reproductive structures are unremarkable. No free intraperitoneal air or fluid. No lymphadenopathy. No evidence of bowel obstruction. No acute osseous findings. IMPRESSION: No acute CT findings in the abdomen or pelvis on this noncontrast exam. Dictated on workstation # [id number] Dict: 09/27/21 1738 Trans: 09/27/21 1742 [facility] [id number] Interpreted by: NICOLETTE SANDERS MD Electronically signed by: Reviewed: Reviewed by Me Departure Impression Primary Impression: Nausea and vomiting in adult Additional Impressions: Left flank pain Constipation Qualified Codes: K59.00 - Constipation, unspecified Cystitis with hematuria Disposition: HOME, SELF-CARE Condition: Stable Departure-Patient Inst. Decision time for Depature: 18:16 Referrals: NELL CARABALLO MD (PCP/Family) Primary Care Physician Patient Instructions: Flank Pain ED, Nausea and Vomiting, Adult ED, Constipation, Adult ED, Urinary Tract Infection, Adult ED Add. Discharge Instructions: Try taking medicine for nausea and to help keep your stomach settled. Take laxative to help keep your stools soft and more regular. Miralax is an over the counter laxative you could mix 17 grams or 1 capful in 8 ounces of water or juice and drink that daily to help keep your stools more soft and regular. Follow up with primary care clinic if having continued problems All discharge instructions reviewed with patient and/or family. Voiced understa nding. Scripts Cephalexin (Cephalexin) 500 Mg Capsule 500 MG PO TID for UTI for 5 Days, #15 CAP 0 Refills Prov: SOLEDAD TOWNSEND MD 09/27/21 Ondansetron (Ondansetron Odt) 4 Mg Tab.rapdis 4 MG PO Q6H PRN for NAUSEA/VOMITING for 5 Days, #20 TAB 0 Refills Prov: SOLEDAD TOWNSEND MD 09/27/21 Naproxen (Naproxen) 500 Mg Tablet 500 MG PO Q12H PRN for flank pain for 5 Days, #10 TAB 0 Refills Prov: SOLEDAD TOWNSEND MD 09/27/21 SOLEDAD TOWNSEND MD Sep 27, 2021 17:23
[2021-09-27 17:41] LABS: BASOPHILS % (AUTO) 0 % (0-10); EOSINOPHILS # (AUTO) 0.2 10^3/uL (0.0-0.3); EOSINOPHILS % (AUTO) 2 % (0-10); HEMATOCRIT 38 % (35-52); HEMOGLOBIN 12.9 g/dL (11.5-16.0); LYMPHOCYTES # (AUTO) 2.7 10^3/uL (1.0-4.0); LYMPHOCYTES % (AUTO) 26 % (12-44); MEAN CORPUSCULAR HEMOGLOBIN 30 pg (25-34); MEAN CORPUSCULAR HGB CONC 34 g/dL (32-36); MEAN CORPUSCULAR VOLUME 87 fL (80-99); MEAN PLATELET VOLUME 9.7 fL (9.0-12.2); MONOCYTES # (AUTO) 0.6 10^3/uL (0.0-1.0); MONOCYTES % (AUTO) 5 % (0-12); NEUTROPHILS # (AUTO) 6.8 10^3/uL (1.8-7.8); NEUTROPHILS % (AUTO) 66 % (42-75); PLATELET COUNT 357 10^3/uL (130-400); WHITE BLOOD COUNT 10.3 10^3/uL (4.3-11.0)
--- NOTE | 2021-09-27 17:42 | Diagnostic Imaging Report ---
PROCEDURE: CT abdomen and pelvis without contrast. TECHNIQUE: Multiple contiguous axial images were obtained through the abdomen and pelvis without the use of intravenous contrast. Auto Exposure Controls were utilized during the CT exam to meet ALARA standards for radiation dose reduction. INDICATION: Left flank pain. Nausea and vomiting x 3 months. COMPARISON: None. FINDINGS: Lung bases are clear. Liver, gallbladder, pancreas, spleen, adrenals, kidneys, collecting systems, bladder and appendix are negative on this noncontrast exam. Reproductive structures are unremarkable. No free intraperitoneal air or fluid. No lymphadenopathy. No evidence of bowel obstruction. No acute osseous findings. IMPRESSION: No acute CT findings in the abdomen or pelvis on this noncontrast exam. Dictated by: Dictated on workstation # [id number]
[2021-09-27 18:03] LABS: ALBUMIN 4.3 GM/DL (3.2-4.5); BILIRUBIN,TOTAL 0.6 MG/DL (0.1-1.0); CALCIUM 9.5 MG/DL (8.5-10.1); CREATININE SERUM 0.65 MG/DL (0.60-1.30); POTASSIUM 3.6 MMOL/L (3.6-5.0); TOTAL PROTEIN 6.9 GM/DL (6.4-8.2)
[2021-09-27] MEDS ORDERED: NAPR-915 PO (18:23)
[2021-09-27] MEDS ORDERED: ONDA4TAB11 PO (18:23)
[2021-09-27] MEDS ORDERED: CEPH500C PO (18:23)
[2021-09-27 18:34] VITALS: BP 124/63
== END 2021-09-27 18:34 | disposition home or self-care (01) ==
LOC: EDUNIT# 16:46 → ER FS 16:49
DX: R11.2 Nausea with vomiting, unspecified (principal); K59.00 Constipation, unspecified; N30.01 Acute cystitis with hematuria; F12.10 Cannabis abuse, uncomplicated; F17.210 Nicotine dependence, cigarettes, uncomplicated
CPT/HCPCS: 36415; 74176; 80053; 80306; 81000; 83690; 84703; 85025

== ENCOUNTER 2022-09-10 06:56 | Inpatient (IN) | payer MEDICAID ==
[~2022-09-10] VITALS: Ht 175.2 cm; Wt 82.5 kg
[2022-09-10] VITALS (46 sets, daily range): BP systolic 92–115; BP diastolic 46–78
[~2022-09-10 06:56] MED LIST changes: +CEPH500C PO; +NAPR-915 PO; +ONDA4TAB11 PO
[2022-09-10] MEDS ORDERED: LIDOCAINE 1% INJ 20 ML VIAL IJ PRN (07:45)
[2022-09-10] MEDS ORDERED: D5 LR IV SOLUTION 1,000 ML IV SCH (07:45)
[2022-09-10] MEDS ORDERED: MINERAL OIL 30 ML UDC TOP PRN (07:45)
--- NOTE | 2022-09-10 07:57 | History & Physical-OB ---
OB - Chief Complaint & HPI Date/Time Date of Admission: Date of Admission: Sep 10, 2022 at 06:56 Date seen by a Provider: Sep 10, 2022 Time Seen by a Provider: 08:10 Chief Complaint/History OB-Reason for Admission/Chief: Induction of Labor Hx : 4 Hx Para: 3 Hx Last Menstrual Period: 09/08/2021 Expected Date of Delivery: Sep 17, 2022 Gestational Age in Weeks: 39 Gestational Age in Days: 0 Indication for induction: post dates Admission Nurse Assessment Rev: Yes Allergies and Home Medications Allergies Coded Allergies: No Known Drug Allergies (Unverified , 10/03/19) Patient Home Medication List Home Medication List Reviewed: Yes Cephalexin (Cephalexin) 500 Mg Capsule, 500 MG PO TID Prescribed by: SOLEDAD TOWNSEND on 09/27/211822 Cyclobenzaprine HCl (Cyclobenzaprine HCl) 10 Mg Tablet, 10 MG PO Q8H PRN for SPASMS Prescribed by: OBDULIA MIGUEL on 07/25/212113 Ferrous Sulfate (Ferrous Sulfate) 325 Mg Tablet, 325 MG PO DAILY Prescribed by: ANITA GARCIA on 06/26/21607 Ibuprofen (Ibu) 600 Mg Tablet, 600 MG PO Q6HR PRN for PAIN-MODERATE (5-7) Prescribed by: ANITA GARCIA on 06/26/21607 Naproxen (Naproxen) 500 Mg Tablet, 500 MG PO Q12H PRN for flank pain Prescribed by: SOLEDAD TOWNSEND on 09/27/211822 Ondansetron (Ondansetron Odt) 4 Mg Tab.rapdis, 4 MG PO Q6H PRN for NAUSEA/VOMITING Prescribed by: SOLEDAD TOWNSEND on 09/27/211822 Pnv with Ca,No.72/Iron/FA (Pnv Plus Multivit Tab) 1 Each Tablet, 1 EA PO DAILY@0700 Prescribed by: ANITA GARCIA on 06/26/21607 Prednisone (Prednisone) 20 Mg Tab, 40 MG PO DAILY Prescribed by: OBDULIA MIGUEL on 07/25/212113 OB - History Hx of Present Care: Yes Ultrasounds: Normal mid trimester US Obstetrical Complications: None Medical Complications: None Delivery History Adverse Rxn to Tranfusion: No (N/A) Patient Past Medical History None Social History/Family History 2nd Hand Smoke Exposure: No Immunizations Influenza Vaccine Up-to-Date: No; Not Current Hepatitis A: No Hepatitis B: No Tetanus Booster (TDap): Less than 5yrs Rubella: immune RPR/VDRL: Negative GBS Status: Negative HBsAG: Negative OB - Admission Exam Physical Exam HEENT: Moist Membranes Heart: Rhythm Normal Lungs: Clear Abdomen: Non tender Extremities: Normal Membranes: Intact Contractions on Admission: None Martinez Scoring Tool (Modified) Dilation (cm): 3-4cm (2) Effacement (%): 51-79% (2) Descent/Station: -1,0 (2) Cervix Consistency: Medium(1) Cervix Position: Middle/Mid-Position (1) Martinez Score: 10 OB - Assessment/Plan/Diagnosis Assessment Assessment: induction of labor Admission Dx 26yo F @ 39w0d presenting for induction of labor. No obstetrical complicati ons during this or with previous pregnancies. Denies any complications during previous deliveries. Patient is a current smoker, smoking 1/2 pack a day. Patient reports she has felt some increased pressure in her lower pelvis that began last night but denies feeling any contractions. Patient is feeling lots of movement. Denies bleeding, abnormal discharge, and leaking fluid. Admission Status: Observation Plan Plan: Induction Other Plan Patient will have an amniotomy done along with expectant management. Patient is not regularly emilie currently, regular contractions will most likely begin after membranes are ruptured. Pitocin will be used to help start contractions if needed. CBC and syphillis were ordered. ADORE POST Sep 10, 2022 07:57
[2022-09-10] MEDS ORDERED: fentaNYL 2 mcg/ml BUPIVA 0.125 100 ML ONE (08:06)
[2022-09-10 08:21] LABS: BASOPHILS % (AUTO) 0 % (0-10); EOSINOPHILS # (AUTO) 0.1 10^3/uL (0.0-0.3); EOSINOPHILS % (AUTO) 1 % (0-10); HEMATOCRIT 36 % (35-52); HEMOGLOBIN 12.4 g/dL (11.5-16.0); LYMPHOCYTES # (AUTO) 2.1 10^3/uL (1.0-4.0); LYMPHOCYTES % (AUTO) 17 % (12-44); MEAN CORPUSCULAR HEMOGLOBIN 33 pg (25-34); MEAN CORPUSCULAR HGB CONC 35 g/dL (32-36); MEAN CORPUSCULAR VOLUME 95 fL (80-99); MEAN PLATELET VOLUME 10.9 fL (9.0-12.2); MONOCYTES # (AUTO) 0.9 10^3/uL (0.0-1.0); MONOCYTES % (AUTO) 7 % (0-12); NEUTROPHILS # (AUTO) 9.1 10^3/uL (1.8-7.8); NEUTROPHILS % (AUTO) 74 % (42-75); PLATELET COUNT 278 10^3/uL (130-400); WHITE BLOOD COUNT 12.2 10^3/uL (4.3-11.0)
[2022-09-10] MEDS ORDERED: fentaNYL INJ 100 MCG/2 ML AMP ONE (08:48)
[2022-09-10] MEDS ORDERED: BUPIVACAINE 0.25% 10 ML (SENSORCAINE) VIAL ONE (08:48)
[2022-09-10] MEDS ORDERED: NALOXONE 0.4 MG/ML 1 ML (NARCAN) VIAL IV PRN (09:15)
[2022-09-10] MEDS ORDERED: fentaNYL 2 mcg/ml BUPIVA 0.125 100 ML IV SCH (09:15)
[2022-09-10] MEDS ORDERED: LACTATED RINGERS 1,000 ML IV ONE (09:15)
[2022-09-10] MEDS ORDERED: CATHETER FLUSH 10 ML SYR IV PRN (09:15)
[2022-09-10] MEDS ORDERED: ONDANSETRON 4 MG/2 ML (SDV) Z0FRAN ONE (09:42)
[2022-09-10] MEDS: ONDANSETRON 4 MG/2 ML (SDV) Z0FRAN IVP PRN ×2 (10:06→14:09)
[2022-09-10] MEDS ORDERED: OXYTOCIN PRE-MIX DRIP 500 ML IV SCH (10:30)
[2022-09-10] MEDS ORDERED: FAMOTIDINE 20MG/2ML IV (PEPCID) IVP NR (10:30)
[2022-09-10] MEDS ORDERED: CATHETER FLUSH 10 ML SYR IV SCH ×2 (14:00→22:00)
[2022-09-10] MEDS ORDERED: LIDOCAINE 1% INJ 10 ML VIAL ONE (14:06)
[2022-09-10] MEDS: OXYTOCIN PRE-MIX DRIP 500 ML IV SCH ×2 (14:42→15:12)
--- NOTE | 2022-09-10 14:53 | OB Labor & Delivery Record ---
Vag Delivery Note Vag Delivery Note Date of Delivery: 09/10/22 Preoperative Diagnosis: Eve Sky is a (26 /Para 4 / 3,Gestational Age (wks)39.3 here for elective IOL Postoperative Diagnosis: Same Surgeon: NELL CARABALLO MD [employer] Supervisor: Maryanne Sheikh MS4 Anesthesia: Epidural Delivery Type: @ 1432 Findings: Viable Male , apgars 9/9, weight 8#3, 3705 grams Lacerations: None Intact placenta with 3 vessel cord. No nuchal cord, body cord or shoulder dystocia Estimated Blood Loss: 100 ml Complications: None Condition: Stable Description of Procedure: The patient is a 26 year old female who presented for elective IOL. She was admitted and informed consent was obtained. Her labor course was remarkable for augmentation with pitocin. She progressed to complete dilatation and began to push. She was then set up for delivery. The infant's head was delivered atraumatically in the CLAIR position. The shoulders and remainder of the 's body were then delivered without difficulty. Upon delivery, the infant was vigorous and placed on maternal chest and the mouth and nares were bulb suctioned. After a delay cord was doubly clamped and cut by aunt of and the infant remained on maternal chest. An intact placenta with 3-vessel cord delivered via Victoriano and there was found to be minimal bleeding.~ Vigorous fundal massage was performed and the fundus was found to be firm. IV oxytocin was given. Examination of the vagina and perineum revealed no lacerations that require repair. Following the repair, sponge, instrument and needle counts were correct. Mom and baby were both in stable condition in the labor suite. Vitals - Labs Vital Signs - I&O Vital Signs Date Time Temp Pulse Resp B/P (MAP) Pulse Ox O2 Delivery O2 Flow Rate FiO2 09/10/22 13:50 36.1 59 18 107/67 (80) 100 Room Air 09/10/22 13:35 59 18 107/50 (69) 100 Room Air 09/10/22 13:05 64 18 109/64 (79) 100 Room Air 09/10/22 12:50 36.0 61 18 108/64 (79) 100 Room Air 09/10/22 12:35 57 18 105/62 (76) 100 Room Air 09/10/22 12:20 77 18 111/63 (79) 100 Room Air 09/10/22 12:05 65 18 101/65 (77) 100 Room Air 09/10/22 11:50 64 18 100/68 (79) 100 Room Air 09/10/22 11:35 71 18 99/57 (71) 100 Room Air 09/10/22 11:20 73 18 106/61 (76) 100 Room Air 09/10/22 11:05 62 18 100/60 (73) 100 Room Air 09/10/22 10:50 61 18 109/56 (73) 100 Room Air 09/10/22 10:35 36.0 61 18 92/46 (61) 100 Room Air 09/10/22 10:20 67 18 104/55 (71) 100 Room Air 09/10/22 10:05 70 18 106/56 (73) 98 Room Air 09/10/22 10:00 59 18 99 Room Air 09/10/22 09:56 61 18 104/63 (77) 99 Room Air 09/10/22 09:53 62 18 105/58 (74) 98 Room Air 09/10/22 09:50 63 18 110/58 (75) 98 Room Air 09/10/22 09:48 61 18 112/69 (83) 99 Room Air 09/10/22 09:45 69 18 115/63 (80) 100 Room Air 09/10/22 09:40 84 18 104/55 (71) 99 Room Air 09/10/22 09:36 95 18 104/55 (71) 99 Room Air 09/10/22 09:33 93 18 115/63 (80) 100 Room Air 09/10/22 09:30 98 18 108/64 (79) 99 Room Air 09/10/22 09:26 75 18 107/61 (76) 100 Room Air 09/10/22 09:23 89 18 101/56 (71) 98 Room Air 09/10/22 09:20 98 18 96/51 (66) 98 Room Air 09/10/22 09:18 85 18 95/60 (72) 98 Room Air 09/10/22 09:15 68 18 103/67 (79) 99 Room Air 09/10/22 09:10 95 18 111/68 (82) 98 Room Air 09/10/22 09:08 76 18 114/65 (81) 98 Room Air 09/10/22 09:05 83 18 108/64 (79) 98 Room Air 09/10/22 09:00 80 18 115/78 (90) 98 Room Air 09/10/22 07:25 37.0 91 18 97 Room Air Labs Laboratory Tests 09/10/22 07:50: White Blood Count 12.2H, Red Blood Count 3.80, Hemoglobin 12.4, Hematocrit 36, Mean Corpuscular Volume 95, Mean Corpuscular Hemoglobin 33, Mean Corpuscular Hemoglobin Concent 35, Red Cell Distribution Width 13.2, Platelet Count 278, Mean Platelet Volume 10.9, Immature Granulocyte % (Auto) 1, Neutrophils (%) (Auto) 74, Lymphocytes (%) (Auto) 17, Monocytes (%) (Auto) 7, Eosinophils (%) (Auto) 1, Basophils (%) (Auto) 0, Neutrophils # (Auto) 9.1H, Lymphocytes # (Auto) 2.1, Monocytes # (Auto) 0.9, Eosinophils # (Auto) 0.1, Basophils # (Auto) 0.0, Immature Granulocyte # (Auto) 0.1 NELL CARABALLO MD Sep 10, 2022 14:52
[2022-09-10] MEDS ORDERED: BENZOCAINE/MENTHOL (DERMOPLAST) 56 ML CAN TP PRN (15:00)
[2022-09-10] MEDS ORDERED: TETANUS,DIPTH,PERTUSS P/F (BOOSTRIX) 0.5 ML VIAL IM ONE (15:00)
[2022-09-10] MEDS ORDERED: MEASLES,MUMPS,RUBELLA 1 EA INJ SQ ONE (15:00)
[2022-09-10] MEDS ORDERED: WITCH HAZEL(TUCKS) 40 EA JAR TOP PRN (15:00)
[2022-09-10] MEDS: ACETAMINOPHEN 500 MG TAB (TYLENOL) PO SCH ×2 (15:12→21:33)
[2022-09-10] MEDS: IBUPROFEN 600 MG (MOTRIN) TAB PO SCH ×2 (15:12→21:34)
[2022-09-10] MEDS: DOCUSATE SODIUM 100 MG (COLACE) CAP PO SCH (21:33)
[2022-09-11 00:33] VITALS: BP 85/51
[2022-09-11 04:49] VITALS: BP 106/62
[2022-09-11] MEDS: ACETAMINOPHEN 500 MG TAB (TYLENOL) PO SCH ×3 (04:49→17:17)
[2022-09-11] MEDS: IBUPROFEN 600 MG (MOTRIN) TAB PO SCH ×4 (04:49→22:43)
[2022-09-11 05:27] LABS: BASOPHILS # (AUTO) 0.1 10^3/uL (0.0-0.1); BASOPHILS % (AUTO) 0 % (0-10); EOSINOPHILS # (AUTO) 0.2 10^3/uL (0.0-0.3); EOSINOPHILS % (AUTO) 1 % (0-10); HEMATOCRIT 34 % (35-52); HEMOGLOBIN 11.7 g/dL (11.5-16.0); LYMPHOCYTES # (AUTO) 2.7 10^3/uL (1.0-4.0); LYMPHOCYTES % (AUTO) 21 % (12-44); MEAN CORPUSCULAR HEMOGLOBIN 33 pg (25-34); MEAN CORPUSCULAR HGB CONC 35 g/dL (32-36); MEAN CORPUSCULAR VOLUME 96 fL (80-99); MONOCYTES # (AUTO) 1.1 10^3/uL (0.0-1.0); MONOCYTES % (AUTO) 8 % (0-12); NEUTROPHILS % (AUTO) 69 % (42-75); PLATELET COUNT 265 10^3/uL (130-400); WHITE BLOOD COUNT 13.1 10^3/uL (4.3-11.0)
[2022-09-11 08:09] VITALS: BP 104/55
[2022-09-11] MEDS: DOCUSATE SODIUM 100 MG (COLACE) CAP PO SCH ×2 (08:09→22:43)
--- NOTE | 2022-09-11 09:23 | Anesthesia-Regional Post-Op ---
Regional Patient Condition Mental Status: Alert, Oriented x3 Circulation: Same as Pre-Op Headache: Absent Sensation: Full Recovery Motor Block: Absent Post Op Complications Complications None Follow Up Care/Instructions Patient Instructions None needed. Anesthesia/Patient Condition Patient is doing well, no complaints, stable vital signs, no apparent adverse anesthesia problems. No complications reported per nursing. DM JOLLEY CRNA Sep 11, 2022 09:23
[2022-09-11 12:00] VITALS: BP 109/57
--- NOTE | 2022-09-11 13:44 | Progress Note ---
Subjective Subjective/Events-last exam Doing well. Bleeding slowed. Objective Exam Last Set of Vital Signs Vital Signs Date Time Temp Pulse Resp B/P (MAP) Pulse Ox O2 Delivery O2 Flow Rate FiO2 09/11/22 12:00 36.2 61 18 109/57 (74) 97 Room Air Capillary Refill : Less Than 3 Seconds I&O Intake and Output 09/11/22 00:00 Intake Total 2500 ml Balance 2500 ml Intake IV Total 2500 ml Blood Loss Quantification Method 100 ml Daily Weight Change No General: Alert, Oriented X3, Cooperative Psych/Mental Status: Mental Status NL, Mood NL Results/Procedures Lab Laboratory Tests 09/11/22 05:13: White Blood Count 13.1H, Red Blood Count 3.51L, Hemoglobin 11.7, Hematocrit 34L, Mean Corpuscular Volume 96, Mean Corpuscular Hemoglobin 33, Mean Corpuscular Hemoglobin Concent 35, Red Cell Distribution Width 13.3, Platelet Count 265, Mean Platelet Volume 11.0, Immature Granulocyte % (Auto) 0, Neutrophils (%) (Auto) 69, Lymphocytes (%) (Auto) 21, Monocytes (%) (Auto) 8, Eosinophils (%) (Auto) 1, Basophils (%) (Auto) 0, Neutrophils # (Auto) 9.0H, Lymphocytes # (Auto) 2.7, Monocytes # (Auto) 1.1H, Eosinophils # (Auto) 0.2, Basophils # (Auto) 0.1, Immature Granulocyte # (Auto) 0.1 Assessment/Plan Assessment/Plan Assessment & Plan G4 now P4 s/p on 09/10/22 following IOL PPD#1 - doing well; routine course. KINGSLEY BAH DO Sep 11, 2022 13:44
[2022-09-11 16:00] VITALS: BP 103/57
[2022-09-11 22:43] VITALS: BP 117/66
[2022-09-12] MEDS: ACETAMINOPHEN 500 MG TAB (TYLENOL) PO SCH ×3 (04:14→10:25)
[2022-09-12 04:49] VITALS: BP 111/60
[2022-09-12] MEDS: IBUPROFEN 600 MG (MOTRIN) TAB PO SCH ×2 (04:49→10:25)
[2022-09-12 10:00] VITALS: BP 118/66
[2022-09-12] MEDS: DOCUSATE SODIUM 100 MG (COLACE) CAP PO SCH (10:25)
--- NOTE | 2022-09-12 11:00 | Discharge Summary ---
Diagnosis/Chief Complaint Date of Admission Sep 10, 2022 at 06:56 Date of Discharge 09/12/22 Admission Diagnosis Admission Diagnosis Third trimester 39 week gestation Discharge Diagnosis Term Uncomplicated 39 completed weeks Delivery of male infant Discharge Summary-Simple/Stand Procedures Epidural Placement Uncomplicated Discharge Physical Examination Allergies: Coded Allergies: No Known Drug Allergies (Unverified , 10/03/19) Vitals & I&Os Vital Sign - Last 12Hours Date Time Temp Pulse Resp B/P (MAP) Pulse Ox O2 Delivery O2 Flow Rate FiO2 09/12/22 04:49 36.8 61 18 111/60 (77) 98 Room Air General Appearance: Alert, Oriented X3, No Acute Distress Respiratory: Clear to Auscultation, Normal Air Movement Cardiovascular: Regular Rate, No Murmurs Abdominal: Normal Bowel Sounds, Soft, No Tenderness, No Masses, Other (fundus firm and below umbilicus) Extremities: No Edema, No Tenderness/Swelling Skin: No Rashes Neuro: Normal Speech Psych/Mental Status: Mental Status NL, Mood NL Hospital Course Was the Problem List Reviewed?: Yes See final discharge diagnosis. Discussion & Recommendations 26 yo G4 now P4 that delivered term male via uncomplicated @ 39 weeks. Discharge Condition at discharge stable Instructions to patient/family Please see electronic discharge instructions given to patient. Discharge Medications Reviewed and agree with Discharge Medication list on patient's Discharge Instruction sheet Copy Copies To 1: NELL CARABALLO MD, HOLLY R MD Sep 12, 2022 11:00
[2022-09-12] MEDS ORDERED: IBUP-844 PO (11:02)
[2022-09-12] MEDS ORDERED: DOCU100C37 PO (11:02)
--- NOTE | 2022-09-12 11:02 | Discharge Summary ---
Discharge Inst[facility] Reconcile Patient Problems Problems Reviewed?: Yes Depart Medications New, Converted or Re-Newed RX: Transmitted to Pharmacy New Medications: Docusate Sodium (Docusate Sodium) 100 Mg Capsule 100 MG PO BID, #28 CAP Ibuprofen (Ibu) 600 Mg Tablet 600 MG PO Q6H, #60 TAB Continued Medications: Pnv with Ca,No.72/Iron/FA (Pnv Plus Multivit Tab) 1 Each Tablet 1 EA PO DAILY@0700, #30 TAB 11 Refills Discontinued Medications: Cephalexin (Cephalexin) 500 Mg Capsule 500 MG PO TID for UTI for 5 Days, #15 CAP 0 Refills Cyclobenzaprine HCl (Cyclobenzaprine HCl) 10 Mg Tablet 10 MG PO Q8H PRN for SPASMS, #15 TAB 0 Refills Ferrous Sulfate (Ferrous Sulfate) 325 Mg Tablet 325 MG PO DAILY, #30 TAB 0 Refills Ibuprofen (Ibu) 600 Mg Tablet 600 MG PO Q6HR PRN for PAIN-MODERATE (5-7), #60 TAB 0 Refills Naproxen (Naproxen) 500 Mg Tablet 500 MG PO Q12H PRN for flank pain for 5 Days, #10 TAB 0 Refills Ondansetron (Ondansetron Odt) 4 Mg Tab.rapdis 4 MG PO Q6H PRN for NAUSEA/VOMITING for 5 Days, #20 TAB 0 Refills Prednisone (Prednisone) 20 Mg Tab 40 MG PO DAILY for 5 Days, #10 TAB 0 Refills Follow Up/Instructions Goal/Follow Up: 6 weeks with [facility] Activity Activity: Activity as Tolerated Driving Instructions: You May Drive NO SMOKING: NO SMOKING Nothing Inside Vagina: No Douching, No Endeavor, No Tampons Diet Discharge Diet: No Restrictions Symptoms to Report to DrNessa: Swelling Increased, Bleeding Excessive, Fever Over 101 Degrees F NELL CARABALLO MD Sep 12, 2022 11:02
== END 2022-09-12 13:10 | disposition home or self-care (01) | DRG 807 ==
LOC: LDRP 06:56
PROVIDERS: ADMIT Family Medicine; ATTEND Family Medicine
PROC: 10E0XZZ Delivery of Products of Conception, External Approach (ICD-10-PCS; principal; 2022-09-10)
PROC: 10907ZC Drainage of Amniotic Fluid, Therapeutic from Products of Conception, Via Natural or Artificial Opening (ICD-10-PCS; 2022-09-10)
DX: O99.334 Smoking (tobacco) complicating childbirth (principal); Z37.0 Single live birth; F17.210 Nicotine dependence, cigarettes, uncomplicated; Z3A.39 39 weeks gestation of pregnancy
CPT/HCPCS: 36415; 85025; 86780; 86850; 86900; 86901